=== PATIENT | male | born 1940 | race Caucasian/White ===

== ENCOUNTER 2021-03-28 20:53 | Emergency (ER) | payer MEDICARE ==
--- NOTE | 2021-03-28 20:58 | ERPHSYRPT ---
- History of Present Illness Time Seen by Provider: 03/28/21 20:58 Source: patient, EMS Exam Limitations: no limitations, clinical condition Physician History: This is an 80-year-old white male patient was brought in by ambulance service and is a patient of Dr. Crenshaw and complains of weakness. He has a history of elevated cholesterol, hypertension and type 2 diabetes. Patient is being treated for a urinary tract infection. Patient states he is feeling more weak today. He denies chest pain. He denies shortness of breath. He has no abdominal pain. He has no nausea vomiting or diarrhea. He denies headache. Timing/Duration: today Severity: moderate Associated Symptoms: loss of appetite, weakness, No chest pain, No fever Allergies/Adverse Reactions: Sulfa (Sulfonamide Antibiotics) Allergy (Verified 03/28/21 21:18) Travel Risk - International Travel Have you traveled outside of the country in past 3 weeks: No - Coronavirus Screening Are you exhibiting any of the following symptoms?: No Close contact with a COVID-19 positive Pt in past 14-21 Days: No - Review of Systems Constitutional: Weakness Eyes: No Symptoms Ears, Nose, & Throat: No Symptoms Respiratory: No Symptoms Cardiac: No Symptoms Abdominal/Gastrointestinal: No Symptoms Genitourinary Symptoms: No Symptoms Musculoskeletal: No Symptoms Skin: No Symptoms Neurological: No Symptoms Psychological: No Symptoms Endocrine: No Symptoms Hematologic/Lymphatic: No Symptoms Immunological/Allergic: No Symptoms All Other Systems: Reviewed and Negative - Past Medical History Neurological History: No Pertinent History Cardiac History: High Cholesterol, Hypertension Respiratory History: Other Endocrine Medical History: Diabetes Type II Musculoskeletal History: Arthritis Other Medical History: hx of Hay Fever - Nursing Vital Signs Nursing Vital Signs: Initial Vital Signs Temperature 98.1 F 03/28/21 20:53 Pulse Rate 83 03/28/21 20:53 Respiratory Rate 20 03/28/21 20:53 Blood Pressure 152/82 03/28/21 20:53 O2 Sat by Pulse Oximetry 92 L 03/28/21 20:53 Pain Scale Pain Intensity 0 - Physical Exam General Appearance: no apparent distress, alert Eye Exam: PERRL/EOMI, eyes nml inspection Ears, Nose, Throat Exam: normal ENT inspection, dry mucous membranes Neck Exam: normal inspection, non-tender, supple, full range of motion Respiratory Exam: normal breath sounds, lungs clear, airway intact, No chest tenderness, No respiratory distress Cardiovascular Exam: regular rate/rhythm, normal heart sounds, normal peripheral pulses Gastrointestinal/Abdomen Exam: soft, normal bowel sounds, No tenderness Rectal Exam: not done Back Exam: normal inspection, normal range of motion, No CVA tenderness, No vertebral tenderness Extremity Exam: normal inspection, normal range of motion, pelvis stable Neurologic Exam: alert, oriented x 3, cooperative, operating systems specialist II-XII nml as tested, normal mood/affect, sensation nml Skin Exam: normal color, warm, dry Lymphatic Exam: No adenopathy SpO2 Interpretation: borderline oxygenation O2 Delivery: Room Air - Course Nursing assessment & vital signs reviewed: Yes EKG Interpreted by Me: RATE (83), Sinus Rhythm, NORMAL AXIS, NORMAL INTERVALS, NORMAL QRS, Non-specific ST Changes, Other (No acute ischemic changes on today's EKG.) Ordered Tests: Active Orders 24 hr Category Date Time Status Stand Up Forklift Operator STAT Care 03/28/21 20:59 Active Catheter-[place] Samano STAT Care 03/28/21 20:59 Active EKG-ER Only STAT Care 03/28/21 20:59 Active IV Insertion STAT Care 03/28/21 20:59 Active Pulse Oximetry (ED) STAT Care 03/28/21 20:59 Active CHEST WITH CONTRAST [CT] Stat Exams 03/28/21 22:16 Ordered HEAD WITHOUT CONTRAST [CT] Stat Exams 03/28/21 21:01 Taken BLOOD CULTURE Stat Lab 03/28/21 22:00 Received CBC W DIFF Stat Lab 03/28/21 21:23 Completed CMP Stat Lab 03/28/21 21:23 Completed COVID AG-BINAX NOW RAPID TEST Stat Lab 03/28/21 22:17 Completed CULTURE,URINE Stat Lab 03/28/21 21:29 Received D-DIMER QUANTITATIVE Stat Lab 03/28/21 21:23 Completed INFLUENZA A+B JULIA Stat Lab 03/28/21 22:17 Completed Lactic Acid Stat Lab 03/28/21 21:31 Completed Lactic Acid Stat Lab 03/28/21 23:36 Received Manual Differential NC Stat Lab 03/28/21 21:23 Completed [place] Screen Stat Lab 03/28/21 21:23 Completed NT PRO BNP Stat Lab 03/28/21 21:23 Completed TROPONIN Q3H Lab 03/28/21 21:23 Completed TROPONIN Q3H Lab 03/29/21 00:00 Ordered TROPONIN Q3H Lab 03/29/21 03:00 Ordered TROPONIN Q3H Lab 03/29/21 06:00 Ordered TROPONIN Q3H Lab 03/29/21 09:00 Ordered UA W/RFX UR CULTURE Stat Lab 03/28/21 21:29 Completed Medication Summary Generic Name Dose Route Start Last Admin Trade Name Margarita PRN Reason Stop Dose Admin Sodium Chloride 1,000 mls @ 100 mls/hr 03/28/21 21:00 03/28/21 22:12 Sodium Chloride 0.9% 1000 Ml IV 04/27/21 20:59 100 mls/hr .Q10H KEVIN Administration Discontinued Medications Generic Name Dose Route Start Last Admin Trade Name Margarita PRN Reason Stop Dose Admin Enoxaparin Sodium 80 mg 03/29/21 00:03 Enoxaparin Sodium 80 Mg/0.8 Ml Syringe SQ 03/29/21 00:04 STAT ONE Lab/Rad Data: Laboratory Result Diagrams 03/28/21 21:23 03/28/21 21:23 Laboratory Results 03/28/21 03/28/21 03/28/21 Range/Units 22:17 22:17 21:31 WBC (4.0-10.5) K/mm3 RBC (4.1-5.6) M/mm3 Hgb (12.5-18.0) gm/dl Hct (42-50) % MCV (78-100) fl MCH (26-32) pg MCHC (32-36) g/dl RDW (11.5-14.0) % Plt Count (150-450) K/mm3 MPV (7.5-11.0) fl D-Dimer (215-500) ng/mL Sodium (137-145) mmol/L Potassium (3.5-5.1) mmol/L Chloride (98-107) mmol/L Carbon Dioxide (22-30) mmol/L Anion Gap (5-15) MEQ/L BUN (9-20) mg/dL Creatinine (0.66-1.25) mg/dL Estimated GFR ML/MIN Glucose (74-106) mg/dL Lactic Acid 1.9 (0.4-2.0) Calcium (8.4-10.2) mg/dL Total Bilirubin (0.2-1.3) mg/dL AST (17-59) U/L ALT (0-50) U/L Alkaline Phosphatase (38-126) U/L Troponin I (0.000-0.034) ng/mL NT-Pro-B Natriuret Pep (0-1800) pg/mL Serum Total Protein (6.3-8.2) g/dL Albumin (3.5-5.0) g/dL Urine Color (YELLOW) Urine Appearance (CLEAR) Urine pH (5-6) Ur Specific [place] (1.005-1.025) Urine Protein (Negative) Urine Ketones (NEGATIVE) Urine Blood (0-5) Romero/ul Urine Nitrite (NEGATIVE) Urine Bilirubin (NEGATIVE) Urine Urobilinogen (0-1) mg/dL Ur Leukocyte Esterase (NEGATIVE) Urine WBC (Auto) (0-5) /HPF Urine RBC (Auto) (0-2) /HPF U Epithel Cells (Auto) (FEW) /HPF Urine Bacteria (Auto) (NEGATIVE) /HPF Urine Mucus (Auto) (NEGATIVE) /HPF Urine Culture Reflexed (NO) Urine Glucose (NEGATIVE) mg/dL Monoscreen (Negative) Influenza Type A Ag NEGATIVE (NEGATIVE) Influenza Type B Ag NEGATIVE (NEGATIVE) SARS-CoV-2 Ag (Rapid) NEGATIVE (NEGATIVE) 03/28/21 03/28/21 03/28/21 Range/Units 21:29 21:23 21:23 WBC (4.0-10.5) K/mm3 RBC (4.1-5.6) M/mm3 Hgb (12.5-18.0) gm/dl Hct (42-50) % MCV (78-100) fl MCH (26-32) pg MCHC (32-36) g/dl RDW (11.5-14.0) % Plt Count (150-450) K/mm3 MPV (7.5-11.0) fl D-Dimer (215-500) ng/mL Sodium (137-145) mmol/L Potassium (3.5-5.1) mmol/L Chloride (98-107) mmol/L Carbon Dioxide (22-30) mmol/L Anion Gap (5-15) MEQ/L BUN (9-20) mg/dL Creatinine (0.66-1.25) mg/dL Estimated GFR ML/MIN Glucose (74-106) mg/dL Lactic Acid (0.4-2.0) Calcium (8.4-10.2) mg/dL Total Bilirubin (0.2-1.3) mg/dL AST (17-59) U/L ALT (0-50) U/L Alkaline Phosphatase (38-126) U/L Troponin I 2.750 H* (0.000-0.034) ng/mL NT-Pro-B Natriuret Pep (0-1800) pg/mL Serum Total Protein (6.3-8.2) g/dL Albumin (3.5-5.0) g/dL Urine Color RADHA (YELLOW) Urine Appearance CLEAR (CLEAR) Urine pH 6.0 (5-6) Ur Specific [place] 1.023 (1.005-1.025) Urine Protein 100 (Negative) Urine Ketones TRACE (NEGATIVE) Urine Blood SMALL (0-5) Romero/ul Urine Nitrite NEGATIVE (NEGATIVE) Urine Bilirubin NEGATIVE (NEGATIVE) Urine Urobilinogen 4 (0-1) mg/dL Ur Leukocyte Esterase NEGATIVE (NEGATIVE) Urine WBC (Auto) NONE (0-5) /HPF Urine RBC (Auto) 6-10 (0-2) /HPF U Epithel Cells (Auto) NONE (FEW) /HPF Urine Bacteria (Auto) NONE (NEGATIVE) /HPF Urine Mucus (Auto) SLIGHT (NEGATIVE) /HPF Urine Culture Reflexed YES (NO) Urine Glucose >=500 (NEGATIVE) mg/dL Monoscreen NEGATIVE (Negative) Influenza Type A Ag (NEGATIVE) Influenza Type B Ag (NEGATIVE) SARS-CoV-2 Ag (Rapid) (NEGATIVE) 03/28/21 03/28/21 03/28/21 Range/Units 21:23 21:23 21:23 WBC 12.3 H (4.0-10.5) K/mm3 RBC 4.40 (4.1-5.6) M/mm3 Hgb 13.3 (12.5-18.0) gm/dl Hct 40.3 L (42-50) % MCV 91.6 (78-100) fl MCH 30.2 (26-32) pg MCHC 33.0 (32-36) g/dl RDW 15.0 H (11.5-14.0) % Plt Count 180 (150-450) K/mm3 MPV 11.1 H (7.5-11.0) fl D-Dimer 2065 H* (215-500) ng/mL Sodium 134 L (137-145) mmol/L Potassium 3.9 (3.5-5.1) mmol/L Chloride 101 (98-107) mmol/L Carbon Dioxide 23 (22-30) mmol/L Anion Gap 13.9 (5-15) MEQ/L BUN 23 H (9-20) mg/dL Creatinine 1.31 H (0.66-1.25) mg/dL Estimated GFR 55.8 ML/MIN Glucose 194 H (74-106) mg/dL Lactic Acid (0.4-2.0) Calcium 9.0 (8.4-10.2) mg/dL Total Bilirubin 2.00 H (0.2-1.3) mg/dL AST 157 H (17-59) U/L ALT 217 H (0-50) U/L Alkaline Phosphatase 163 H (38-126) U/L Troponin I (0.000-0.034) ng/mL NT-Pro-B Natriuret Pep 2220 H (0-1800) pg/mL Serum Total Protein 7.5 (6.3-8.2) g/dL Albumin 4.2 (3.5-5.0) g/dL Urine Color (YELLOW) Urine Appearance (CLEAR) Urine pH (5-6) Ur Specific [place] (1.005-1.025) Urine Protein (Negative) Urine Ketones (NEGATIVE) Urine Blood (0-5) Romero/ul Urine Nitrite (NEGATIVE) Urine Bilirubin (NEGATIVE) Urine Urobilinogen (0-1) mg/dL Ur Leukocyte Esterase (NEGATIVE) Urine WBC (Auto) (0-5) /HPF Urine RBC (Auto) (0-2) /HPF U Epithel Cells (Auto) (FEW) /HPF Urine Bacteria (Auto) (NEGATIVE) /HPF Urine Mucus (Auto) (NEGATIVE) /HPF Urine Culture Reflexed (NO) Urine Glucose (NEGATIVE) mg/dL Monoscreen (Negative) Influenza Type A Ag (NEGATIVE) Influenza Type B Ag (NEGATIVE) SARS-CoV-2 Ag (Rapid) (NEGATIVE) - Progress Progress Note: 03/28/21 22:09 CAT scan of the head without contrast shows no acute intracranial abnormality. 03/29/21 00:08 CAT scan of the chest with contrast shows no pulmonary emboli present. No evidence of pulmonary infiltrate. 03/29/21 00:10 Medical decision making: This patient has a non-STEMI. His urinalysis appears clear of infection. The patient's main complaint is weakness and patient had mild confusion as well. I spoke with Dr. Kathia Dowell (jar filler at [facility]). He recommends 1 mg/kg of Lovenox subcutaneously. If the blood pressure is elevated then 1 inch of nitroglycerin paste. Patient denies shortness of breath and he denies chest pain at this time. We are awaiting hospitalist phone call from [facility] and we will transfer the patient to [facility]. Counseled pt/family regarding: lab results, diagnosis, need for follow-up, rad results - Departure Departure Disposition: Transfer Clinical Impression: Non-STEMI (non-ST elevated myocardial infarction), Weakness, Confusion Condition: Stable Critical Care Time: No Referrals: SIMÓN CRENSHAW MD [Primary Care Provider] - Follow up/PCP as directed
[2021-03-28] MEDS ORDERED: Sodium Chloride 0.9% 1000 ML 1,000 ML IV SCH (21:00)
[2021-03-28 21:50] LABS: Hematocrit 40.3 % (42-50); Hemoglobin 13.3 gm/dl (12.5-18.0); Mean Cell Volume 91.6 fl (78-100); Mean Corpuscular Hemoglobin 30.2 pg (26-32); Mean Platelet Volume 11.1 fl (7.5-11.0); Platelet Count 180 K/mm3 (150-450); White Blood Count 12.3 K/mm3 (4.0-10.5)
[2021-03-28 21:52] LABS: Appearance CLEAR (CLEAR); Bilirubin NEGATIVE (NEGATIVE); Blood SMALL Ery/ul (0-5); Glucose >=500 mg/dL (NEGATIVE); Ketones TRACE (NEGATIVE); Leukocyte Esterase NEGATIVE (NEGATIVE); Mucus SLIGHT /HPF (NEGATIVE); Nitrite NEGATIVE (NEGATIVE); Protein,Urine Dip 100 (Negative); Specific Gravity 1.023 (1.005-1.025); Urobilinogen 4 mg/dL (0-1)
[2021-03-28] MEDS ORDERED: Sodium Chloride 0.9% 1000 ML 1,000 ML ONE (22:10)
[2021-03-28 22:11] LABS: ALBUMIN 4.2 g/dL (3.5-5.0); ANION GAP 13.9 MEQ/L (5-15); Creatinine 1 1.31 mg/dL (0.66-1.25); EST GLOMERULAR FILTRATION RATE 55.8 ML/MIN; Potassium 3.9 mmol/L (3.5-5.1); Total Protein 7.5 g/dL (6.3-8.2)
[2021-03-28 22:50] LABS: INFLUENZA A NEGATIVE (NEGATIVE); INFLUENZA B NEGATIVE (NEGATIVE)
[2021-03-28 22:51] LABS: COVID AG -BINAX NOW RAPID TEST NEGATIVE (NEGATIVE)
[2021-03-29] MEDS ORDERED: ENOXAPARIN SODIUM SQ ONE ×2 (00:03→00:58)
[2021-03-29] MEDS ORDERED: NITRO-BID 2% UD PACKETS TOP ONE (00:50)
[2021-03-29] MEDS ORDERED: NITRO-BID 2% UD PACKETS ONE (00:58)
[2021-03-29 01:02] LABS: Lymphocytes 3 % (24-44); Monocyte 5 % (0.0-12.0); Neutrophils 92 % (36.-66.); Platelet Estimate NORMAL (NORMAL); Total Cells Counted 100
[2021-03-29 01:03] LABS: ANISOCYTOSIS 1+
[2021-03-29] MEDS ORDERED: Lasix 40 MG/4 ML IV ONE (01:04)
[2021-03-29] MEDS ORDERED: Lasix 40 MG/4 ML ONE (01:31)
[2021-03-29 02:18] VITALS: BP 112/71; PULSE 80; O2SAT 94
--- NOTE | 2021-03-29 08:17 | XRAY ---
Indication: Confusion and weakness. Multiple contiguous axial images obtained through the head without contrast. Comparison: None Age-appropriate global atrophy and mild periventricular degenerative micro-ischemia bilaterally. No acute intracranial hemorrhage, abnormal extra-axial fluid collection, or mass effect. Fourth ventricle is midline. Prominent ventricular system not out of proportion to global atrophy. Bony calvarium intact. Visualized paranasal sinuses are clear. Partial opacification right mastoid air cells possibly inflammatory. Impression: Nonacute senile brain. Partial opacification right mastoid air cells possibly inflammatory. Comment: Preliminary interpretation made by [facility]. No critical discrepancy.
--- NOTE | 2021-03-29 08:19 | XRAY ---
Indication: Cough and weakness. Elevated d-dimer. Multiple contiguous axial images obtained through the chest using 80 cc Isovue 370 contrast and PE protocol. Comparison: None Good opacification of the pulmonary arteries to include the lobar and segmental branches. No pulmonary embolus. Heart borderline enlarged. Aorta is mildly arteriosclerotic without aneurysm/dissection. [place] mediastinal calcified nodes. No pathologic mediastinal/hilar lymphadenopathy. Lungs demonstrate moderate bilateral dependent atelectasis and a few peripheral left upper lobe calcified granulomas. No suspicious pulmonary mass, infiltrate, effusion, or pneumothorax. Bony thorax intact with minimal degenerative changes throughout the spine. Limited upper abdomen demonstrates mild fatty liver and a few subcentimeter gallstones. Impression: 1. Negative pulmonary embolus. No acute cardiopulmonary abnormalities. 2. Incidental fatty liver, degenerative spondylosis, and gallstones. Comment: Preliminary interpretation made by C. No critical discrepancy.
== END 2021-03-29 02:35 | disposition short-term general hospital (02) ==
LOC: ED 20:53
DX: I21.4 Non-ST elevation (NSTEMI) myocardial infarction (principal); I10 Essential (primary) hypertension; R53.1 Weakness; R41.0 Disorientation, unspecified; E78.5 Hyperlipidemia, unspecified; E11.9 Type 2 diabetes mellitus without complications
CPT/HCPCS: 36000; 36415; 51702; 70450; 71260; 80053; 81001; 83605; 83880; 84484; 85025; 85379; 86308; 87040; 87086; 87400; 93005; 93041; 94760; 96372; 96374; 99000; 99285; J1650; J1940; A9270-GY